=== PATIENT | male | born 1985 | race Caucasian/White ===

== ENCOUNTER 2019-10-26 09:14 | Emergency (ER) | payer SELFPAY ==
[~2019-10-26] VITALS: Ht 193 cm; Wt 88.6 kg
[2019-10-26 09:19] VITALS: BP 147/86
== END 2019-10-26 09:40 | disposition home or self-care (01) ==
LOC: EMS 09:14
DX: Z11.59 Encounter for screening for other viral diseases (principal); Z20.828 Contact with and (suspected) exposure to other viral communicable diseases
CPT/HCPCS: 99283; U0003